=== PATIENT | female | born 1945 | race Hispanic/Latino ===

== ENCOUNTER → 2017-09-27 | Outpatient (CLI) | payer MEDICARE ==
--- NOTE | 2017-09-27 11:14 | Diagnostic Imaging Report ---
PROCEDURE:X-RAY RIGHT SHOULDER, COMPLETE COMPARISON:None. INDICATIONS:RIGHT SHOULDER PAIN FINDINGS: There are no fractures, dislocations, lytic or blastic lesions. The bones are well-mineralized. The soft-tissues are unremarkable. CONCLUSION: No acute radiographic abnormality. Dictated by: Cali Vegas M.D. on 09/27/2017 at 11:23 Electronically approved by: Cali Vegas M.D. on 09/27/2017 at 11:23
== END ==
LOC: RAD 10:31
PROVIDERS: ATTEND Family Medicine
DX: M25.511 Pain in right shoulder (principal)

== ENCOUNTER → 2017-11-08 | Outpatient (CLI) | payer MEDICARE ==
--- NOTE | 2017-11-08 11:56 | Diagnostic Imaging Report ---
PROCEDURE: Frontal and lateral views of the chest. COMPARISON: Patients [facility], DX, SHOULDER RIGHT COMPLETE, 09/27/2017, 10:51. INDICATIONS: COUGH FINDINGS: Lines/tubes: None. Lungs: The lungs are well inflated and clear. There is no evidence of pneumonia or pulmonary edema. Pleura: There is no pleural effusion or pneumothorax. Heart and mediastinum: Mild enlargement of the cardiac silhouette. Pulmonary vasculature is normal. Atherosclerotic calcification of aortic arch. Bones: No acute bony abnormality. IMPRESSION: 1. mild enlargement of the cardiac silhouette, without acute cardiopulmonary abnormalities. Aric Oneil M.D. Dictated by: Aric Oneil M.D. on 11/08/2017 at 11:56 Electronically approved by: Aric Oneil M.D. on 11/08/2017 at 11:56
== END ==
LOC: RAD 10:57
PROVIDERS: ATTEND Family Medicine
DX: R05 Cough (principal)
CPT/HCPCS: 71046

== ENCOUNTER → 2017-12-06 | Outpatient (CLI) | payer MEDICARE ==
[~2017-12-06] MED LIST: GADOBENATE DIMEGLUMINE 1 ML IV ONE
[2017-12-06 08:34] LABS: BLOOD UREA NITROGEN 12 mg/dL (7-26); BUN/CREATININE RATIO 17 (6-25); CREATININE, SERUM 0.69 mg/dL (0.57-1.11); EST GLOMERULAR FILTRATION RATE > 60 ML/MIN (60-)
--- NOTE | 2017-12-06 11:03 | Diagnostic Imaging Report ---
TECHNIQUE: Magnetic resonance imaging of the RIGHT SHOULDER was performed WITH and WITHOUT injected contrast, 12 cc of MultiHance. HISTORY: Swelling, cyst COMPARISON: Right shoulder radiographs September 27, 2017 FINDINGS: MUSCLES AND TENDONS: Rotator Cuff: Tendons: Supraspinatus and Infraspinatus: A focal low-grade partial-thickness tear of the anterior supraspinatus tendon. Superficial low-grade articular sided partial-thickness tearing of the conjoined tendon. Mild infraspinatus delamination results in a 1 cm (AP) x 1.2 cm (ML) x 0.3 cm (CC) myotendinous cyst. Teres Minor: Intact, a round calcification in the distal tendon measures up to 0.7 cm. No adjacent edema. Subscapularis: Thickening and increased intrasubstance signal of the superior tendon. Focal low-grade articular sided partial-thickness tearing. No tendon retraction. Muscles: No focal muscle atrophy. Biceps Tendon: The long head of the biceps tendon is within the intertubercular groove. Partial intra-articular degenerative tearing. GLENOHUMERAL JOINT: Glenoid Labrum: Mild attenuation and degenerative tearing of the posterosuperior labrum. Articular Cartilage: No focal defect. Joint Fluid: Small to moderate effusion and synovitis. ACROMIOCLAVICULAR JOINT: Moderate hypertrophic degenerative changes of the acromioclavicular joint. Mild synovitis and adjacent subchondral bone marrow edema. No effusion. BONE: The acromion is unremarkable. The bone marrow signal is heterogeneous, compatible with red marrow conversion, no specific evidence of a focal bone marrow replacing abnormality. No acute fracture. Subcortical cystic changes at the greater tuberosity. SOFT TISSUES: Small volume of fluid within the subacromial/subdeltoid bursa. IMPRESSION: 1. Supraspinatus, infraspinatus, subscapularis, and long head of the biceps tendinosis including low-grade partial-thickness tearing. 2. Quiescent teres minor calcific tendinopathy. 3. Glenohumeral and acromioclavicular joint degenerative changes, including mild degenerative tearing of the posterosuperior labrum. 4. Mild subacromial/subdeltoid bursitis. Signed by: Dr. Cody Braxton D.O., M.M.M. on 12/06/2017 10:59 AM
== END ==
LOC: MRI 07:59
PROVIDERS: ATTEND Specialist
DX: R22.31 Localized swelling, mass and lump, right upper limb (principal)
CPT/HCPCS: 36415; 82565; 84520

== ENCOUNTER 2018-01-18 15:00 | Outpatient (RCR) | payer MEDICARE | END 2018-01-19 | LOC: PT 15:00 | PROVIDERS: ATTEND Specialist | DX: M75.91 Shoulder lesion, unspecified, right shoulder (principal); M25.511 Pain in right shoulder; M25.611 Stiffness of right shoulder, not elsewhere classified; M62.81 Muscle weakness (generalized) | CPT/HCPCS: 97110 ×4; 97139; 97140; 97161; G8984 ×2; G8985 ×2 ==

== ENCOUNTER → 2019-06-13 | Outpatient (CLI) | payer MEDICARE ==
--- NOTE | 2019-06-13 17:02 | Diagnostic Imaging Report ---
EXAMINATION: MRI of the brain without contrast. HISTORY: Daily headaches COMPARISON: None. TECHNIQUE: Sagittal T2; axial DWI, T2, FLAIR, T1-IR, T2 gradient echo; coronal FLAIR. FINDINGS: Parenchyma: 1. A few scattered white matter T2 hyperintense foci, most likely nonspecific chronic microvascular ischemic changes, within normal limits for age. 2. No mass, hemorrhage, acute or chronic infarcts. Skull: Unremarkable. Vessels: Expected flow voids present in the major arteries and dural sinuses. Extra-axial spaces: No abnormal signal intensity or mass effect. Brain volume: Within normal limits for age. Ventricles: No hydrocephalus or displacement. Foramen magnum: Unremarkable. Sella: Mildly enlarged, partially empty, most diffuse infiltrate Paranasal / mastoid sinuses: Mucosal thickening of the maxillary sinuses. IMPRESSION: No intracranial abnormality to explain patient's symptoms, particularly no mass, hemorrhage or infarct. Signed by: Dr. Zenaida Potts M.D. on 06/13/2019 4:59 PM
== END ==
LOC: MRI 14:15
PROVIDERS: ATTEND Family Medicine
DX: R51 Headache (principal)
CPT/HCPCS: 70551